=== PATIENT | male | born 1940 | race Caucasian/White ===

== ENCOUNTER → 2016-09-27 | Outpatient (CLI) | payer MEDICARE, BC ==
[~2016-09-27] MED LIST: ALLOPURINOL100 M1 PO; ASPIRIN FOR CHI81 MG PO; HUMULIN 70/30 PE3 ML SC; LISINOPRIL/HCTZ1 TA3; LOSARTAN POTAS100 MG PO; METFORMIN1000 MG PO; METOPROLOL100 MG PO; OMEPRAZOLE20 MG PO; PLAVIX75 MG PO; SIMVASTATIN10 MG PO; VITAMIN B121000 MC2 SL
[2016-09-27 13:56] LABS: HEMOGLOBIN 13.2 g/dL (14.1-18.0); LYMPH # 2.9 K/mm3 (0.7-4.5); LYMPH % 36.6 % (10-50)
[2016-09-27 14:42] LABS: URINE BILIRUBIN - DIPSTICK NEGATIVE (NEG); URINE BLOOD NEGATIVE (NEG)
[2016-09-27 17:07] LABS: BUN 37 mg/dL (7-18)
[2016-09-27 17:58] LABS: GFR (ESTIMATED) 37 ML/MIN (>60)
== END ==
LOC: LAB 13:43
PROVIDERS: Internal Medicine Nephrology
DX: N18.3 Chronic kidney disease, stage 3 (moderate) (principal); M10.9 Gout, unspecified